=== PATIENT | female | born 1995 | race American Indian/Alaskan Native ===

== ENCOUNTER 2016-09-29 01:24 | Emergency (ER) | payer OTHER ==
[2016-09-29 02:15] VITALS: BP 123/77
[2016-09-29 02:54] LABS: Alanine Aminotransferase 10 units/L (7-56); Albumin 4.1 g/dL (3.9-5); Albumin/Globulin Ratio 1.2 %; Alkaline Phosphatase 57 units/L (35-129); Anion Gap 17 mmol/L; Bilirubin,Total 0.7 mg/dL (0.1-1.2); Blood Urea Nitrogen 12 mg/dL (7-17); Calcium 9.4 mg/dL (8.4-10.2); Carbon Dioxide 27 mmol/L (22-30); Chloride 100.6 mmol/L (98-107); Glucose 80 mg/dL (65-100); Lipase 28 units/L (13-60); Potassium 3.9 mmol/L (3.6-5.0); Sodium 141 mmol/L (137-145); Total Protein 7.5 g/dL (6.3-8.2)
[2016-09-29 02:57] LABS: Basophils % (Auto) 0.5 % (0.0-1.8); Eosinophils % (Auto) 1.8 % (0.0-4.3); Hematocrit 42.5 % (30.3-42.9); Hemoglobin 14.1 gm/dl (10.1-14.3); Mean Corpuscular HGB Conc 33 % (30-34); Mean Corpuscular Hemoglobin 31 pg (28-32); Mean Corpuscular Volume 93 fl (79-97); Platelet Count 151 K/mm3 (140-440); Red Blood Count 4.55 M/mm3 (3.65-5.03); Red Cell Distribution Width 13.9 % (13.2-15.2); White Blood Count 7.7 K/mm3 (4.5-11.0)
[2016-09-29 03:36] LABS: Bilirubin,Urine NEG (Negative); Blood,Urine NEG (Negative); Ketones,Urine TR mg/dL (Negative); Leukocyte Esterase,Urine LG (Negative); Mucus,Urine 3+ /HPF; Nitrite,Urine NEG (Negative)
--- NOTE | 2016-09-29 19:42 | ED Elopement Review ---
ED Pt Elopement review - Results review Lab results: Laboratory Tests 09/29/16 09/29/16 09/29/16 02:19 02:19 02:19 WBC 7.7 RBC 4.55 Hgb 14.1 Hct 42.5 MCV 93 MCH 31 MCHC 33 RDW 13.9 Plt Count 151 Lymph % (Auto) 41.8 H [place] % (Auto) 8.0 H Eos % (Auto) 1.8 Baso % (Auto) 0.5 Lymph # 3.2 [place] # 0.6 Eos # 0.1 Baso # 0.0 Seg Neutrophils % 47.9 Seg Neutrophils # 3.7 Sodium 141 Potassium 3.9 Chloride 100.6 Carbon Dioxide 27 Anion Gap 17 BUN 12 Creatinine 0.6 L Estimated GFR > 60 BUN/Creatinine Ratio 20.00 Glucose 80 Calcium 9.4 Total Bilirubin 0.7 AST 15 ALT 10 Alkaline Phosphatase 57 Total Protein 7.5 Albumin 4.1 Albumin/Globulin Ratio 1.2 Lipase 28 HCG, Qual Negative Urine Color Urine Turbidity Urine pH Ur Specific [place] Urine Protein Urine Glucose (UA) Urine Ketones Urine Blood Urine Nitrite Urine Bilirubin Urine Urobilinogen Ur Leukocyte Esterase Urine WBC (Auto) Urine RBC (Auto) U Epithel Cells (Auto) Urine Mucus 09/29/16 Unknown WBC RBC Hgb Hct MCV MCH MCHC RDW Plt Count Lymph % (Auto) [place] % (Auto) Eos % (Auto) Baso % (Auto) Lymph # [place] # Eos # Baso # Seg Neutrophils % Seg Neutrophils # Sodium Potassium Chloride Carbon Dioxide Anion Gap BUN Creatinine Estimated GFR BUN/Creatinine Ratio Glucose Calcium Total Bilirubin AST ALT Alkaline Phosphatase Total Protein Albumin Albumin/Globulin Ratio Lipase HCG, Qual Urine Color [place] Urine Turbidity Slightly-cloudy Urine pH 5.0 Ur Specific [place] 1.034 H Urine Protein 30 mg/dl Urine Glucose (UA) Neg Urine Ketones Tr Urine Blood Neg Urine Nitrite Neg Urine Bilirubin Neg Urine Urobilinogen 2.0 Ur Leukocyte Esterase Lg Urine WBC (Auto) 23.0 H Urine RBC (Auto) 1.0 U Epithel Cells (Auto) 4.0 Urine Mucus 3+ - Call Back decision Pt Call Back Decision: Pt to F/U with PMD (UTI)
== END 2016-09-29 05:07 | disposition left against medical advice (07) ==
LOC: ED 01:24
DX: R11.0 Nausea (principal); Z53.21 Procedure and treatment not carried out due to patient leaving prior to being seen by health care provider
CPT/HCPCS: 36415; 80053; 81001; 83690; 84703; 85025